=== PATIENT | male | born 1980 ===

== ENCOUNTER 2021-05-11 19:24 | Emergency (ER) | payer SELFPAY ==
--- NOTE | 2021-05-11 20:55 | NUR ---
NIl x3
== END 2021-05-11 20:56 ==
LOC: ED 20:00
DX: R51.9 Headache, unspecified (principal); R09.81 Nasal congestion; R94.31 Abnormal electrocardiogram [ECG] [EKG]; Z53.21 Procedure and treatment not carried out due to patient leaving prior to being seen by health care provider
CPT/HCPCS: 93005